=== PATIENT | female | born 1990 | race Hispanic/Latino ===

== ENCOUNTER 2018-10-27 09:56 | Inpatient (IN) | payer OTHER ==
[2018-10-27] MEDS ORDERED: ZOLPIDEM TARTRATE 5 MG TABLET PO PRN (10:17)
[2018-10-27] MEDS ORDERED: PROMETHAZINE 25 MG/ML VIAL IM PRN (10:17)
[2018-10-27] MEDS ORDERED: BUTORPHANOL 1 MG/ML INJ IV PRN (10:17)
[2018-10-27] MEDS ORDERED: MIDAZOLAM HCL 2 MG/2 ML INJ IV PRN (10:17)
[2018-10-27] MEDS ORDERED: Ringers Lactate 1,000 ML IV PRN (10:17)
[2018-10-27] MEDS ORDERED: MAGNES/ALUMIN/SIMET 30ML UCUP PO PRN (10:17)
[2018-10-27] MEDS ORDERED: MEPERIDINE HCL 25 MG/0.5 ML IV PRN (10:17)
[2018-10-27] MEDS ORDERED: METHYLERGONOVINE 0.2MG/ML AMP IM PRN ×2 (10:17→20:54)
[2018-10-27] MEDS ORDERED: DIPHENHYDRAMINE 25 MG TAB/CAP PO PRN ×2 (10:17→20:54)
[2018-10-27] MEDS ORDERED: OXYTOCIN/LR 20 UNIT/1,000 ML BAG IV ONE (10:55)
[2018-10-27] MEDS ORDERED: OXYTOCIN/LR 20 UNIT/1,000 ML BAG IV SCH ×2 (11:00→21:00)
[2018-10-27] MEDS ORDERED: Ringers Lactate 1,000 ML IV SCH (11:00)
[2018-10-27] MEDS ORDERED: LIDOCAINE 2% INJ, 20 mL 0 ML ONE (11:14)
[2018-10-27 11:15] LABS: RPR Titer ND
[2018-10-27 11:16] LABS: Absolute Lymphocytes (CBC) 2.7 K/uL (0.7-4.9); Absolute Monocytes 1.3 K/uL (0.1-1.3); Absolute Neutrophil 10.5 K/uL (1.8-8.0); Basophils % 0.3 % (0-1.3); Eosinophils % 0.7 % (0-4.4); Hematocrit 41.1 % (36.0-45.0); Lymphocytes % 18.5 % (15.3-44.8); MPV 10.4 fL (7.6-11.3); Monocytes % 8.7 % (3.3-12.3); RBC Red Blood Cell Count 4.27 M/uL (3.86-4.86)
[2018-10-27 11:25] LABS: Urine Appearance CLOUDY; Urine Bilirubin NEGATIVE (NEG); Urine Blood 2+ (NEG); Urine Color YELLOW; Urine Glucose NEGATIVE (NEG); Urine Protein NEGATIVE (NEG); Urine pH 6.5 (5.0-7.0)
[2018-10-27 11:31] LABS: Urine Microscopic Reflex ORDER UMIC
[2018-10-27 12:05] LABS: Urine Bacteria >50 /HPF (<20); Urine Culture Reflex Order NOT NEEDED; Urine RBC <5 /HPF (NONE SEEN)
[2018-10-27 13:15] VITALS: BMI 29.1
--- NOTE | 2018-10-27 18:48 | PREOPHP ---
Date of Admission: 10/27/2018 A 28-year-old, 2, para 1, 40 weeks 2 days, Rh positive, immune to Rubella, negative beta stre p screen, comes into Labor and Delivery, active labor, 4 cm, singh every 1 to 3 minutes. She i s now approximately 4.5 to 5 cm, 80% to 90% effaced, vertex, -1 station, rupture of membranes, clear fluid. The patient has had 1 mg of Stadol, was using Lamaze breathing techniques as she did with her first and plans to go without epidural. The patient knows of course she can change her mi nd if she decides to. Full labor talk given. Anticipate rather more rapid progress once she gets to be about 6 cm. Full admission and labor talk given. SCOTT/CHER Voice ID: [id number]
[2018-10-27] MEDS ORDERED: NA CIT/CITRIC AC 30 ML ORAL UDC PO ONE (19:05)
[2018-10-27] MEDS ORDERED: METOCLOPRAMIDE 10 MG/2mL INJ IV ONE (20:00)
[2018-10-27] MEDS ORDERED: CEFAZOLIN 2 GM in NA CHLORIDE 0.9% 100 ML IVPB SCH (20:00)
[2018-10-27] MEDS ORDERED: OXYTOCIN 10 UNIT/ML ML IV ONE ×3 (20:03→20:32)
[2018-10-27] MEDS ORDERED: EPHEDRINE SULF 50 MG/ML VIAL ONE (20:03)
[2018-10-27] MEDS ORDERED: BUPIVACAINE 0.75% (PF) 2 ML SP ONE (20:03)
[2018-10-27] MEDS ORDERED: MORPHINE SULFATE/PF 1 MG/ML (10 ML AMP) ONE (20:03)
[2018-10-27] MEDS ORDERED: LIDOCAINE 1% MPF 5 ML VIAL ONE (20:07)
[2018-10-27] MEDS ORDERED: MIDAZOLAM HCL 2 MG/2 ML INJ ONE (20:37)
[2018-10-27] MEDS ORDERED: KETOROLAC 30 MG/ML INJ IV PRN (20:54)
[2018-10-27] MEDS ORDERED: ONDANSETRON 4 MG (ODT) TAB PO PRN (20:54)
[2018-10-27] MEDS ORDERED: BISACODYL 10 MG RECTAL SUPP RECT PRN (20:54)
[2018-10-27] MEDS ORDERED: ONDANSETRON 4 MG/2 ML VIAL IV PRN (20:54)
[2018-10-27] MEDS ORDERED: ACETAMINOPHEN 500 MG TAB PO PRN ×2 (20:54)
[2018-10-27] MEDS ORDERED: CEFAZOLIN 1GM (PREMIX IV) 1 GM/50 ML BAG IV ONE (20:54)
[2018-10-27] MEDS ORDERED: KETOROLAC 30 MG/ML INJ IM PRN (20:54)
--- NOTE | 2018-10-27 21:49 | PN ---
The patient is on 16 milliunits of Pitocin, singh regularly. She has had 2 doses of Stadol, bu t the patient is still only about 6 cm, which she was about an hour ago, still about -1 station, stil l about 70% effaced. No real good change in the last hour or more in spite of good firm contractions . We will continue to increase the Pitocin to 20 milliunits or more at the standard rate. She is do ing pelvic rocks. Right now, it is still difficult to tell what position the baby is in. Once the b mik comes lower, I think we can expect more rapid progress. SCOTT/CHER Voice ID: [id number] Report ID: [id number]
--- NOTE | 2018-10-28 01:01 | PN ---
A 28-year-old female, breached, about 5.5 cm at around lunchtime and has really not changed since the n. Cervix is edematous at the 10 o'clock position. Baby has not descended whatsoever and she is not dilated since lunchtime that is over 7 hours. She is on 24 milliunits of Pitocin, singh very regularly. She has had 2 mg of Stadol, using Lamaze breathing techniques. Has been doing pelvic tina alton to see if the baby will rotate into a more favorable position. Infection; blood loss; anestheti c complications; injury to bladder, bowel, ureter; postoperative complications; clots in legs and pne umonia discussed. The patient knows fully well these do not constitute all the possible problems ang t could occur during or following surgery. She will discuss it with her family and then let us know in the next few minutes what she wishes to do. If she wishes to proceed with , of course we will call Anesthesia and proceed on with the . If she wishes to wait, the baby looks good, v ital signs are normal and she is certainly in excellent control and we could wait another couple of h ours if she wishes. But as stated, she has made no change since 12 o'clock and it is now 7 o'clock i n spite of good regular firm contractions. SCOTT/CHER Voice ID: [id number] Report ID: [id number]
[2018-10-28 02:12] LABS: RPR (Rapid Plasma Reagin) NON-REACT (NON-REACT)
--- NOTE | 2018-10-28 07:08 | OP ---
Surgeon: Jas Iglesias MD Indications: Ms. Boggs is a 28-year-old, 2, para 1, 40 weeks' gestation, came in active labor , 4 cm on admission. Rupture of membranes. The patient progressed to 5.5 cm, but then stopped dilat ing, and stopped descending the baby even with good firm contractions high of 24 milliunits a minute. The patient never progressed beyond 5.5 cm, was thought to be straight occiput posterior, and indee d at the time of surgery was noted to be straight occiput posterior. After 7 hours of no progress, i t was decided to proceed with section. Infection, blood loss, anesthetic complications, inj ury to bladder, bowel, ureter, postoperative complications, clots in legs, and pneumonia discussed. The patient knows fully well this does not constitute all the possible problems that could occur duri ng or following surgery. Anesthesia: Spinal block anesthesia, Dr. Gonzalez group. [employer] Surgeon: Dr. Ventura. Description Of Procedure: After prepping and draping, time-out was performed. 2 g of Ancef had been ordered for prophylaxis. Pfannenstiel incision was created. The incision was carried to the fascia . The fascia was incised and incision carried transversely bilaterally with Dunaway scissors. Anterior fascial plane was developed with both blunt and sharp dissection. The underlying rectus muscle was . Perineum entered bluntly. Low transverse uterine incision created. A 7-pound, 10-ounce female delivered straight occiput posterior. Apgars 9 and 10. Cord blood specimen was obtained. Ut erus removed from the peritoneal cavity, noted to be hypotonic. 0.2 mg of Methergine as well as IV d rip Pitocin and massage. Estimated blood loss during the procedure 1100 cc. Uterus closed with a ru nning locked stitch of 1 chromic followed by a single [id number] stitch in the left angle for co mplete hemostasis. At this point, the uterus was replaced into the peritoneal cavity. It had been r eplaced and then removed with a single [id number] stitch in the left angle. Again, inspection o f the suture line showed no further bleeding. The muscle was then reapproximated using 0 Vicryl. Th e fascia was then closed from either angle using 0 Vicryl. Subcutaneous tissue closed with 2-0 plain . Absorbable garret placed and then metal garret. The patient tolerated all procedures well, hernandez sferred back to her room in good condition. Final Diagnoses: Term intrauterine at 40 weeks, failure to progress in labor, persistent o cciput posterior, mild uterine hypotonus. SCOTT/CHER Voice ID: [id number] Report ID: [id number]
[2018-10-28] MEDS: IBUPROFEN 200 MG TAB PO PRN ×2 (08:40→18:40)
[2018-10-28] MEDS ORDERED: FAMOTIDINE 20 MG/2 ML VIAL IV SCH (09:00)
--- NOTE | 2018-10-28 12:50 | PN ---
Postoperatively doing quite well. We will remove her IV and Garcia. Start ambulation, p.o. intake. Full postoperative talk given. We will go over it again tomorrow. Possibly dismissal tomorrow after noon if she continues to show good progress. SCOTT/CHER Voice ID: [id number] Report ID: [id number]
[2018-10-28] MEDS: Oxycodone HCl/Acetaminophen 1 TAB TAB PO PRN ×2 (13:15→23:07)
[2018-10-28] MEDS ORDERED: MAGNESIUM HYDROXIDE 8% 30 ML PO PRN (20:55)
[2018-10-29] MEDS: IBUPROFEN 200 MG TAB PO PRN (02:25)
[2018-10-29] MEDS: Oxycodone HCl/Acetaminophen 1 TAB TAB PO PRN ×2 (09:41→14:58)
[2018-10-29 11:25] VITALS: BP 102/59; TEMP 97.9
[2018-10-30 13:37] LABS: HBsAG Nonreactive (Nonreactive)
== END 2018-10-29 16:30 | disposition home or self-care (01) | DRG 788 ==
LOC: L&D 09:56 → 2ND-WC 10:22
PROVIDERS: ADMIT Specialist; ATTEND Specialist
PROC: 10D00Z1 Extraction of Products of Conception, Low, Open Approach (ICD-10-PCS; principal; 2018-10-27 20:00)
DX: O64.0XX0 Obstructed labor due to incomplete rotation of fetal head, not applicable or unspecified (principal); O62.2 Other uterine inertia; O62.0 Primary inadequate contractions; Z3A.40 40 weeks gestation of pregnancy; Z37.0 Single live birth
CPT/HCPCS: 36415; 81003; 81015; 85014; 85025; 86592; 86850; 86900; 86901; 87340; 88307; J0595; J0690; J2175; J2210; J2250; J2550; J2590; J2765